=== PATIENT | female | born 2000 | race Caucasian/White ===

== ENCOUNTER 2023-02-04 16:37 | Emergency (ER) | payer MEDICAID | END 2023-02-04 17:39 | disposition home or self-care (01) | LOC: JP.ED 16:37 | DX: Z77.098 Contact with and (suspected) exposure to other hazardous, chiefly nonmedicinal, chemicals (principal); Z91.018 Allergy to other foods | CPT/HCPCS: 99283 ==

== ENCOUNTER 2023-05-25 10:55 | Emergency (ER) | payer MEDICARE, MEDICAID ==
[2023-05-25 12:41] LABS: APPEARANCE,URINE CLOUDY (CLEAR); COLOR,URINE ORANGE (YELLOW)
[2023-05-25 12:48] LABS: AMORPHOUS SEDIMENT,URINE NOT SEEN; BACTERIA,URINE MANY; EPITHELIAL CELLS,URINE MODERATE; MUCUS,URINE FEW
== END 2023-05-25 13:52 | disposition home or self-care (01) ==
LOC: JP.ED 10:55
DX: N39.0 Urinary tract infection, site not specified (principal); Z86.16 Personal history of COVID-19; Z91.018 Allergy to other foods
CPT/HCPCS: 81001; 81025; 87086; 87088; 87186; 99284